=== PATIENT | female | born 1940 | race Caucasian/White ===

== ENCOUNTER → 2016-09-30 | Outpatient (CLI) | payer MEDICARE, OTHER ==
[~2016-09-30] MED LIST: ACETAMINOPHEN325 MG PO; ALBUTEROL17 GM; ALBUTEROL17 GM INH; ALLERGY RELIEF10 M6 PO; ARICEPT5 M1 PO; ARICEPT5 MG PO; BACLOFEN10 MG PO; BACTRIM DS TABL1 TAB PO; BENZONATATE PO; CIPRO PO; DISCONTINUED MED; ELIQUIS5 MG PO; FLUZONE HI180 MCG/03 IM; HYDROCODON-ACE1 EAC5 PO; HYDROCODONE-APA1 T42 PO; KEFLEX500 MG PO; LEVAQUIN PO; LISINOPRIL PO; LISINOPRIL-HCTZ1 T15; LISINOPRIL-HCTZ1 T15 PO; LODINE XL500 MG PO; LOPRESSOR PO; LORTAB 5/500 TA1 TA1 PO; MAGNESIUM400 MG PO; MAXALT MLT10 MG/TAB PO; MAXALT5 MG; METFORMIN HCL500 M1; METFORMIN HCL500 M1 PO; METOPROLOL TAR25 MG PO; MICRONASE5 M1 PO; MICRONASE5 M2 PO; NARATRIPTAN2.5 MG PO; NORCO 10/3251 TAB PO; NORVASC PO; NORVASC10 MG PO; OPANA; OPANA ER; PATIENT'S PHARMACY; PHENERGAN PO; PROAIR HFA8.5 GM IH; PROAIR HFA8.5 GM IN; TIZANIDINE HCL4 M1; TYLENOL #3 PO; VICODIN 5/500 T1 TAB PO; VITAMIN D1000 UNIT PO; ZANAFLEX4 M1 PO; ZESTORETIC 20-1 EAC1 PO; ZESTORETIC 20/11 TA1 PO; ZOFRAN PO; [UNRECOGNIZED DRUG - CODE] SQ
--- NOTE | ~2016-09-30 | EKG ---
PATIENT: PAO NICOLAS UNIT #: [id number] Ventricular Rate: 68 BPM Atrial Rate: 100 BPM QRS Duration: 76 ms Q-T Interval: 394 ms QTC Calculation(Bezet): 418 ms Calculated R [place]: -16 degrees Calculated T [place]: 7 degrees Diagnosis Line: Atrial fibrillation Diagnosis Line: Inferior infarct , age undetermined Diagnosis Line: Abnormal ECG Diagnosis Line: When compared with ECG of 12-MAR-2016 12:08, Diagnosis Line: Vent. rate has decreased BY 36 BPM Diagnosis Line: Inferior infarct is now Present Diagnosis Line: T wave amplitude has increased in Lateral leads Diagnosis Line: Confirmed by LASHAY SAEED MD ([id number]) on Diagnosis Line: 10/01/2016 1:16:39 PM INTERPRETING MD: MICHAELA
[2016-09-30 07:56] LABS: HEMATOCRIT 44.5 % (35.0-45.0); HEMOGLOBIN 14.2 gm/dL (12.0-16.0); MEAN CELL VOLUME 89.5 FL (83-96); MEAN CORPUSCULAR HEMOGLOBIN 28.6 PG (28-34); MEAN PLATELET VOLUME 8.5 FL (6.5-11.5); RED BLOOD COUNT 4.97 X10e (3.90-5.30); RED CELL DISTRIBUTION WIDTH 14.2 % (11.0-15.5); WHITE BLOOD COUNT 7.4 X10e3 (4.0-10.5)
[2016-09-30 08:11] LABS: PARTIAL THROMBOPLASTIN TIME 24.3 SECONDS (23.5-31.3); PROTHROMBIN TIME (PATIENT) 10.2 SECONDS (9.6-11.5)
[2016-09-30 08:18] LABS: CALCIUM SERUM 9.2 mg/dL (8.4-10.2); GLOM FILT RATE Estimated 53.9 mL/min (>60); POTASSIUM 4.3 mmol/L (3.5-5.1)
== END | disposition home or self-care (01) ==
LOC: CCVL 07:26
PROVIDERS: Internal Medicine Cardiovascular Disease
DX: I08.0 Rheumatic disorders of both mitral and aortic valves (principal); I48.91 Unspecified atrial fibrillation; I27.2 Other secondary pulmonary hypertension; I10 Essential (primary) hypertension; Z82.49 Family history of ischemic heart disease and other diseases of the circulatory system; R07.89 Other chest pain; J30.9 Allergic rhinitis, unspecified
CPT/HCPCS: 36415; 80048; 82810; 85027; 85610; 85730; 93005; C1769; C1887; C1894; J1644; J2250; J3010

== ENCOUNTER 2017-01-15 11:34 | Inpatient (IN) | payer MEDICARE, OTHER ==
[~2017-01-15] VITALS: Ht 157.5 cm; Wt 77.0 kg
--- NOTE | ~2017-01-15 | EKG ---
PATIENT: PAO NICOLAS UNIT #: [id number] Ventricular Rate: 60 BPM Atrial Rate: 288 BPM QRS Duration: 72 ms Q-T Interval: 428 ms QTC Calculation(Bezet): 428 ms Calculated R [place]: -15 degrees Calculated T [place]: 9 degrees Diagnosis Line: Atrial fibrillation Diagnosis Line: Low voltage QRS Diagnosis Line: Inferior infarct (cited on or before 30-SEP-2016) Diagnosis Line: Abnormal ECG Diagnosis Line: When compared with ECG of 30-SEP-2016 08:55, Diagnosis Line: No significant change was found Diagnosis Line: Confirmed by JOVANNA GARZA MD ([id number]) on 01/17/2017 Diagnosis Line: 10:59:23 PM INTERPRETING MD: GREG BERNARD
--- NOTE | ~2017-01-15 | DS ---
Unit #: [id number] #: [id number] Patient: PAO NICOLAS [id number] [address] [address] [id number] I MR#: [id number] NAME: PAO NICOLAS. ROOM: 562 Age: 76 Sex: F Admission Date: 01/15/2017 : 1940 Discharge Date: Attending Physician: Evangelista Klein M.D. Primary Care Physician: Tim Hargrove M.D. DISCHARGE SUMMARY DIAGNOSES ON ADMISSION 1. Weakness. 2. Acute kidney injury. 3. Sepsis. 4. Dehydration. DIAGNOSES ON DISCHARGE 1. Dehydration, resolved. 2. Acute kidney injury, resolved. 3. Probable acute urinary tract infection. 4. Sepsis. 5. Hypotension but resolved. 6. History of hypertension. 7. History of dementia. 8. Chronic atrial fibrillation. 9. Degenerative joint disease. 10. Migraine headache. 11. Chronic low-back pain with sciatica. 12. Yakyqukv-yt-gdbwpb mitral stenosis with ejection fraction of 50% to 60%. 13. Chronic atrial fibrillation. CONSULTATION Dr. Aguilar in cardiac consultation. DIAGNOSTIC STUDIES LABORATORY: Patient's creatinine is 1.1, sodium is 141, potassium 3.6. WBC 7.6, hemoglobin 12.3, platelet count 183,000. Urinalysis revealed 100-200 WBCs. Blood cultures did not reveal any growth so far. Urine culture was negative. TSH was 0.19. IMAGING: Chest x-ray revealed no acute cardiopulmonary findings. HOSPITAL COURSE A 76-year-old patient was admitted to [facility] with weakness and hypertension. Details are as per admission H and P. Acute urinary tract infection: Urine culture was negative, but patient's UA was positive and she was treated with antibiotics. She is afebrile. Acute kidney injury: Patient received IV fluids. The creatinine is normal now. Atypical chest pain: Patient was seen by cardiology in consultation who Unit #: [id number] #: [id number] Patient: PAO NICOLAS thought that patient had normal coronary arteries as per cardiac cath done recently. Hypotension: The patient's blood pressure was on low side which was attributed to the hypertension medications. There is also concern that patient may not be taking her medicines as directed as per the patient's daughter because of her dementia. Therefore, blood pressure medications were discontinued. The patient's blood pressure is 156/82 this morning. Therefore, we will have patient followup with primary care physician. Patient was seen by physical therapy who thought that patient is at her baseline and safe to go home. Today patient is comfortable, is not in any acute distress. PHYSICAL EXAMINATION VITAL SIGNS: Patient's vital signs reveal temperature of 98.4, pulse was 92 per minute, respiratory rate was 16 per minute, blood pressure was 150/64. HEENT: Revealed no conjunctival congestion. Sclerae nonicteric. NECK: Supple. Trachea central. RESPIRATORY: Revealed decreased breath sounds bilaterally. There are no wheezes or crackles. HEART: Irregularly irregular. S1, S2. ABDOMEN: Soft, nontender. Bowel sounds are present in all four quadrants. NEUROLOGIC: Patient is alert to person, place, and time. Power is 5/5 bilaterally. Sensations are grossly intact. SKIN: Warm and dry. RECOMMENDATIONS ON DISCHARGE Condition is stable. Activity is as tolerated. MEDICATIONS ON DISCHARGE 1. Albuterol MDI two puffs b.i.d. p.r.n. 2. Tylenol 650 mg q.6 hours p.r.n. 3. Eliquis 2.5 mg p.o. b.i.d. 4. Metoprolol 12.5 mg p.o. b.i.d. 5. Aricept 5 mg p.o. daily. 6. Hydrocodone 10 mg q.8 hours p.r.n. 7. Baclofen 10 mg p.o. t.i.d. p.r.n. 8. Keflex 500 mg p.o. b.i.d. for four days for acute urinary tract infection. FOLLOWUP Patient is advised to follow up with primary care physician in one week and have a CBC and BMP done. I called and spoke with patient's daughter, Zoë, and she showed complete understanding to plan on discharge. She will ensure that patient is taking her medications properly and followup with her primary care physician. Dictated by... Adrian Ochoa/jessica Unit #: [id number] #: [id number] Patient: PAO NICOLAS Octaviano TD: 01/18/2017 11:35 JOB #: [id number] CC: Tim Hargrove M.D. DISCHARGE SUMMARY Page 1 of 1 X Evangelista Klein MD DISCHARGE SUMMARY
--- NOTE | ~2017-01-15 | EKG ---
PATIENT: PAO NICOLAS UNIT #: [id number] Ventricular Rate: 85 BPM Atrial Rate: 113 BPM QRS Duration: 74 ms Q-T Interval: 354 ms QTC Calculation(Bezet): 421 ms Calculated R [place]: -12 degrees Calculated T [place]: 38 degrees Diagnosis Line: Atrial fibrillation Diagnosis Line: Low voltage QRS Diagnosis Line: Abnormal ECG Diagnosis Line: Diagnosis Line: Confirmed by SAURABH SANCHEZ MD ([id number]) on 01/20/2017 Diagnosis Line: 7:45:28 AM INTERPRETING MD: LAURA BERNARD
--- NOTE | ~2017-01-15 | CR72 ---
[facility] A Service of [facility] RADIOLOGY TEXT RESULTS PATIENT: PAO NICOLAS LOCATION: [facility] 56 : 38 UNIT #: [id number] AGE: [address]: Yousuf La MD SEX: F ORDER DR: [id number] [facility] [address] [facility] [place], [place] [address] [id number] E MR#: [id number] Acc #: [id number] NAME: PAO NICOLAS : 1940 SEX: F STUDY DATE/TIME: 01/15/2017 12:25 UNIT: [facility] ROOM: STUDY DESCRIPTION: CR Chest Single View Portable Attending Physician: Teodoro Loyd D.O. Ordering Physician: Teodoro Loyd D.O. Primary Care Physician: Tim Hargrove M.D. MEDICAL IMAGING REPORT This report is preliminary unless electronic signature is present EXAM Chest portable 01/15/2017 1225 hours HISTORY 76-year-old woman with 1-week history of shortness of air, weakness and vomiting blood. History of hypertension and heart murmur. COMPARISON 03/11/2016 FINDINGS Portable upright chest demonstrates heart size at the upper limits of normal with calcification of the mitral annulus, unchanged. Aortic contours are normal. There are calcified mediastinal and hilar nodes, unchanged. Lungs are hyperinflated with no acute pulmonary density. Previous interstitial changes seen on prior study have resolved. IMPRESSION Pulmonary hyperinflation with benign calcified granulomatous changes. There are no acute cardiopulmonary findings. Dictated by... Carleen Candelaria M.D. THIS IS AN ELECTRONICALLY VERIFIED REPORT Carleen Candelaria M.D. at 01/16/2017 5:21 PM JOZEF/keke TD: 01/15/2017 15:40 JOB #: [id number] MEDICAL IMAGING REPORT [facility] A Service [facility] RADIOLOGY TEXT RESULTS PATIENT: PAO NICOLAS LOCATION: [place] [address] : 38 UNIT #: [id number] AGE: [address]: Yousuf La MD SEX: F ORDER DR: Page 1 of 1 COPY
--- NOTE | ~2017-01-15 | HP ---
Unit #: [id number] #: [id number] Patient: PAO NICOLAS [id number] [address] [address] [id number] E MR#: [id number] NAME: PAO NICOLAS ROOM: Age: 76 Sex: F Admission Date: 01/15/2017 : 1940 Attending Physician: Teodoro Loyd D.O. Primary Care Physician: Tim Hargrove M.D. HISTORY AND PHYSICAL CHIEF COMPLAINT Chief complaint is weakness. HISTORY OF PRESENT ILLNESS The patient is a 76-year-old female with a history of hypertension, diabetes and atrial fibrillation on anticoagulation, brought to the emergency room complaining of the feeling weakness, vomiting. The patient has been feeling sick for the last one week. The patient was seen by the PCP on Wednesday and diagnosed with a UTI. The patient was discharged home on amoxicillin for the UTI. However, the patient continues feeling sick with no appetite and continues to have vomiting. The patient has three vomiting episodes since this morning. The patient denies any fever, denies any fall, denies any chest pain. The patient is being admitted for the above reasons. PAST MEDICAL HISTORY History of diabetes, hypertension, atrial fibrillation, osteoarthritis, migraine and sciatica. PAST SURGICAL HISTORY Right knee replacement, a left knee replacement and cataracts bilaterally. SOCIAL HISTORY Denies tobacco, alcohol or any illicit drug abuse. She is , has one child and walks with a walker. FAMILY HISTORY Family history is positive for Parkinson disease. ALLERGIES No known drug allergies. HOME MEDICATIONS Patient is on levofloxacin, Zofran, [place], Aricept and lisinopril, hydrochlorothiazide, baclofen, Lopressor, Eliquis, Ventolin. REVIEW OF SYMPTOMS Positive for weakness, positive for nausea and vomiting, positive for dehydration and negative for chest pain, negative for shortness of breath and all other systems have been reviewed and negative as otherwise mentioned in the HPI. PHYSICAL EXAMINATION Unit #: [id number] #: [id number] Patient: PAO NICOLAS GENERAL APPEARANCE: On examination the patient is lying on a bed not in acute distress. VITAL SIGNS: Temperature 97.5, pulse 65, respiratory rate 16, blood pressure is 92/56, sating 98% at room air. HEAD: Atraumatic/normocephalic. HEENT: Pupils equal, round and reacting to light and accommodation. Extraocular movements are intact. NECK: Supple. LUNGS: Decreased air entry at the bases. HEART: Regular rate and rhythm. ABDOMEN: Soft and positive bowel sounds. EXTREMITIES: No cyanosis. No clubbing and no edema. NEURO: No gross focal motor deficit. DIAGNOSTIC STUDIES LAB DATA: WBCs 11.8, hemoglobin 14.9, hematocrit 46.4 and platelet is 263, INR is 1.2, sodium is 140, potassium 4.8, chloride 104, bicarb 23, glucose 94, BUN 39, creatinine 2.9, calcium 9.5, AST 38, ALT 22, alkaline phosphatase 93, troponin less than 0.05, lactic acid is 2.1. IMAGING: And chest x-ray shows pulmonary hyperinflation with noncalcified granulomatous changes. There are no acute cardiopulmonary findings. ASSESSMENT AND PLAN 1. Acute kidney injury. 2. History of a urinary tract infection. 3. Sepsis. 4. Dehydration. Plan to admit the patient to the inpatient with the telemetry. Continue with IV fluids per sepsis protocol and hold the blood pressure medications with the lisinopril and hydrochlorothiazide and will start on IV antibiotics with Rocephin and follow up with the UA with the cultures and patient will have an OT/PT evaluation and further recommendations will follow as more lab results are available. Dictated by Adrian Prasad/su TD: 01/15/2017 17:54 JOB #: [id number] HISTORY AND PHYSICAL Page 1 of 1 X MT MENJIVAR MD HISTORY AND PHYSICAL
--- NOTE | ~2017-01-15 | CO ---
Unit #: [id number] #: [id number] Patient: PAO NICOLAS [id number] [address] [place], [place] [address] [id number] I MR#: [id number] NAME: PAO NICOLAS ROOM: 562 Age: 76 Sex: F Admission Date: 01/15/2017 : 1940 Attending Physician: Yousuf La M.D. Primary Care Physician: Tim Hargrove M.D. Consultation Date: 01/16/2017 CONSULTATION REPORT This patient is a patient of Dr. Nuñez. REASON FOR CONSULTATION Atrial fibrillation with slow ventricular response. HISTORY OF PRESENT ILLNESS This is a 76-year-old white female, who has a history of hypertension, diabetes mellitus. She has permanent atrial fibrillation that was diagnosed last year and has been on metoprolol and Eliquis, chronic back pain, asthma versus COPD, EF of 55% to 60% with moderate mitral stenosis, normal coronaries on her last catheterization. This past 09/2016, has some mild dementia who came to the emergency room with weakness, nausea, abdominal discomfort. According to the patient, she had been to her family doctor earlier in the week and was put on antibiotics for urinary tract infection. She says she is progressively becoming weaker and had a low-grade fever. She said that she has been eating well and her nausea intensified and she had a couple episodes of vomiting. She denies any fall; however, she has a bruise on her right upper deltoid area of right upper extremity. She denies any chest pain; pain in her neck, bilateral jaws, shoulders, arms, or elbow. She denies any palpitations. She has complained of some dizziness. In the emergency room, the patient's blood pressure was 92/56, heart rate was 65, respirations 16, temperature 97.5, O2 saturation 98% on room air. Her EKG shows atrial fibrillation with ventricular rate around 60. Her initial cardiac enzymes are negative. The patient's BUN is 39 with creatinine 2.9. Looking back on her previous admissions, her creatinine has never been that high. Potassium is 4.8. The patient's lactic acid is 2.1 and later 2.6. WBCs are 11.8, her hemoglobin hematocrit are stable. The patient's urinalysis shows 2+ leukocyte esterase, 0.2 urobilinogen, 100 to 200 wbc's, and 1+ bacteria. The patient's urine and blood cultures are pending. The patient's chest x-ray shows nothing acute. The patient was started on sepsis protocol. Started on normal saline, received a bolus during the night. Her telemetry showed a 2.1 second pause. She remains in atrial fibrillation. She states she did take a dose of her metoprolol yesterday morning, but has not had any since that has been held. Cardiology consult to assist with evaluation and management. PAST MEDICAL HISTORY 1. Hypertension. 2. Diabetes mellitus, type 2. 3. Osteoarthritis and sciatica, ambulates with a walker. Unit #: [id number] #: [id number] Patient: PAO NICOLAS 4. History of chronic back pain and history of narcotic dependence. 5. Permanent atrial fibrillation diagnosed in 03/2016, on metoprolol and Eliquis. 6. History of migraines. 7. Questionable obstructive sleep apnea, questionable asthma versus COPD secondary to secondhand smoking. 8. In 03/2016, Lexiscan Cardiolite stress test, EF of 65%. No ischemia. No infarction. 9. In 09/2016, right and left heart catheterization showed normal coronaries with the EF of 60%. Jaszvyjv-ex-afwjgj mitral stenosis, mild pulmonary artery hypertension with mitral valve area of 1.65 cm, mitral valve index 0.87. 10. In 03/2016, 2D echo, LVEF of 55% to 60% with biatrial enlargement. Mitral valve leaflets are calcified. 11. Nonsmoker. 12. Mild dementia. PAST SURGICAL HISTORY 1. Right knee replacement. 2. Left knee replacement. 3. Bilateral cataract surgery. HOME MEDICATIONS Naratriptan 2.5 mg p.o. daily p.r.n. for migraine headaches, Levaquin 500 mg p.o. daily recently started for UTI, Zofran 4 mg p.o. every 6 hours p.r.n., hydrocodone/acetaminophen 10/325 one tablet p.o. every 8 hours p.r.n., Aricept 5 mg p.o. daily, Zestoretic 20/12.5 one tablet p.o. daily, baclofen 10 mg one tablet t.i.d. p.r.n., metoprolol 25 mg p.o. b.i.d., Eliquis 5 mg p.o. b.i.d., Ventolin one puff inhalation b.i.d. p.r.n. ALLERGIES No known drug allergies. SOCIAL HISTORY The patient lives with her granddaughter. She ambulates with a walker. She says she has never smoked, but has been exposed to smokers. No alcohol or illicit drug abuse. FAMILY HISTORY No known coronary artery disease. REVIEW OF SYSTEMS See details in HPI. PHYSICAL EXAMINATION GENERAL: Ms. Hollis is a 76-year-old white female, in no acute respiratory distress. She is awake, alert, answers most questions appropriately. VITAL SIGNS: Currently blood pressure is 107/62, heart rate is 76, respirations 18, temperature is 98, O2 saturations 97% on 2 L. NECK: Trachea midline. No thyromegaly or lymphadenopathy. Normal carotid upstrokes. No jugular venous distention. HEART: S1, S2. Regular rate and rhythm. Systolic murmur over the left sternal border. LUNGS: Diminished, otherwise clear. ABDOMEN: Soft and nontender. EXTREMITIES: Pedal pulses are palpable with trace of pedal edema. Unit #: [id number] #: [id number] Patient: PAO NICOLAS DIAGNOSTIC STUDIES LABORATORY RESULTS: Glucose is 90, BUN 13, creatinine 1.8. Yesterday, her BUN was 39 and creatinine 2.9. EGFR is 26.5. Sodium 141, potassium 4.5, chloride 112, CO2 of 23, calcium is 8.4. Total protein 7.4, albumin 4.0, bilirubin total 0.9. AST 38, ALT 22, alkaline phosphatase is 93. Lactic acid is 2.1 and later 2.6. WBCs 8.2, hemoglobin 12.5, hematocrit 37.7, and platelets is 190. Initial cardiac enzymes; CK-MB is 11.3, troponin less than 0.05. INR is 1.2. Urinalysis shows 2+ leukocyte esterase, trace of protein, 0.2 urobilinogen, 100 to 200 wbc's, and 1+ bacteria. Urine and blood cultures pending. IMAGING STUDIES: Chest x-ray shows pulmonary hyperinflation with benign calcified granulomatous changes. There is nothing acute. CARDIOVASCULAR STUDIES: EKG shows atrial fibrillation with a ventricular rate of 60 beats per minute. Low voltage. Inferior infarct age undetermined. Poor R-wave progression. Telemetry showed a 2.15 second pause nothing any longer. IMPRESSION 1. Weakness, nausea, abdominal pain. 2. Questionable sepsis. 3. Acute kidney injury. 4. Questionable sepsis, hypotension, along with increased lactic acid. 5. Acute kidney injury. 6. Moderate to severe mitral stenosis with EF of 55% to 60%. 7. Permanent atrial fibrillation with slow ventricular response. 8. Questionable urinary tract infection. 9. History of normal coronaries on cardiac cath in 09/2016. 10. History of hypertension. 11. Diabetes mellitus, type 2. 12. Osteoarthritis, sciatica, and chronic back pain. 13. History of migraines. 14. Mild dementia. 15. Nonsmoker. PLAN 1. Cardiology consult to assist with evaluation and management. The patient had the longest pause of 2.15 seconds. Holding all her blood pressure medications that include her beta-deny. She did have a dose yesterday morning. 2. With the patient's change in her renal status, we have to decrease down the dose of Eliquis for a renal dosing from 5 mg b.i.d. to 2.5 mg b.i.d. 3. On exam, there are no signs or symptoms of unstable angina. We will continue to monitor the patient off her beta-deny. If she has no significant pauses greater than 3 seconds, may need to keep her off the beta-deny and/or have an outpatient event monitor placed. 4. The patient is on IV fluids for acute kidney injury. Also holding all of her medications affects her blood pressure including her Zestoretic and her Lopressor. 5. Urine and blood cultures are pending. She is on the sepsis protocol. 6. Further recommendations pending per Dr. Aguilar. Dictated by... Sayda Batista A.P.R.N. Unit #: [id number] #: [id number] Patient: PAO NICOLAS ADIA/bakari TD: 01/16/2017 19:12 JOB #: [id number] CC: Jonatan Nuñez M.D. CONSULTATION REPORT Page 1 of 1 X Sayda Batista APRN CONSULTATION REPORT
[~2017-01-15 11:34] MED LIST changes: -ACETAMINOPHEN325 MG PO; -ALBUTEROL17 GM INH; -HYDROCODON-ACE1 EAC5 PO; -KEFLEX500 MG PO; -LEVAQUIN PO; -MAGNESIUM400 MG PO; -PATIENT'S PHARMACY; -ZESTORETIC 20-1 EAC1 PO; -ZOFRAN PO
[2017-01-15 12:44] LABS: BASOPHIL% 0.2 % (0-2.5); EOSINOPHIL% 0.2 % (0.0-7.0); HEMATOCRIT 46.4 % (35.0-45.0); HEMOGLOBIN 14.9 gm/dL (12.0-16.0); LYMPHOCYTE# 1.6 X10e3 (1.0-3.5); LYMPHOCYTE% 13.7 % (17.0-45.0); MEAN CELL VOLUME 90.6 FL (83-96); MEAN CORPUSCULAR HEMOGLOBIN 29.1 PG (28-34); MEAN CORPUSCULAR HGB CONC 32.1 g/dL (30-36); MEAN PLATELET VOLUME 8.4 FL (6.5-11.5); MONOCYTE# 0.8 X10e3 (0-1.0); MONOCYTE% 6.7 % (3.0-12.0); NEUTROPHIL# 9.4 X10e3 (1.5-7.1); NEUTROPHIL% 79.2 % (40-75); PLATELET COUNT 263 X10e3 (140-420); RED BLOOD COUNT 5.12 X10e (3.90-5.30); RED CELL DISTRIBUTION WIDTH 13.8 % (11.0-15.5); WHITE BLOOD COUNT 11.8 X10e3 (4.0-10.5)
[2017-01-15 12:45] LABS: DIFF IND NO
[2017-01-15] MEDS ORDERED: ARICEPT5 M1 PO (12:53)
[2017-01-15] MEDS ORDERED: HYDROCODON-ACE1 EAC5 PO (12:53)
[2017-01-15] MEDS ORDERED: BACLOFEN10 MG PO (12:53)
[2017-01-15] MEDS ORDERED: LOPRESSOR PO (12:53)
[2017-01-15] MEDS ORDERED: ZESTORETIC 20-1 EAC1 PO (12:53)
[2017-01-15] MEDS ORDERED: LEVAQUIN PO (12:53)
[2017-01-15] MEDS ORDERED: ZOFRAN PO (12:53)
[2017-01-15] MEDS ORDERED: ELIQUIS5 MG PO (12:54)
[2017-01-15] MEDS ORDERED: ALBUTEROL17 GM INH (12:54)
[2017-01-15] MEDS ORDERED: PATIENT'S PHARMACY (12:54)
[2017-01-15 12:58] LABS: INR 1.2; PARTIAL THROMBOPLASTIN TIME 26.6 SECONDS (23.5-31.3); PROTHROMBIN TIME (PATIENT) 12.9 SECONDS (10.0-11.7)
[2017-01-15 13:10] LABS: BILIRUBIN,TOTAL 0.9 mg/dL (0.2-2.0); BUN/CREATININE RATIO 13.44; CALCIUM SERUM 9.5 mg/dL (8.4-10.2); CREATININE SERUM 2.9 mg/dL (0.6-1.4); GLOM FILT RATE Estimated 14.9 mL/min (>60); POTASSIUM 4.8 mmol/L (3.5-5.1); PROTEIN TOTAL SERUM 7.4 g/dL (6.0-8.3)
[2017-01-15 13:33] LABS: POC - CKMB 11.3 ng/mL (0.0-7.9); POC - TROPONIN <0.05 ng/mL (<=0.05)
[2017-01-15 16:03] LABS: URINE SOURCE CLEAN CATCH
[2017-01-15 16:13] LABS: URINE APPEARANCE CLOUDY; URINE BILIRUBIN NEG (NEG); URINE BLOOD NEG (NEG); URINE COLOR YELLOW; URINE GLUCOSE NEG (NEG); URINE KETONE NEG (NEG); URINE LEUKOCYTE ESTERASE 2+ (NEG); URINE NITRATE NEG (NEG); URINE PROTEIN TRACE (NEG); URINE SPECIFIC GRAVITY 1.024 (1.003-1.035); URINE UROBILINOGEN 0.2 MG/DL (NEG)
[2017-01-15 16:15] LABS: CULTURE INDICATED? YES; URINE BACTERIA AUWI 1+ (NEGATIVE); URINE SQUAMOUS EPITHELIAL CELL MOD /[HPF]; UWBCS1 AUWI 100-200 (0-5)
[2017-01-15 16:32] LABS: U HYALINE CASTS AUWI 0-2 /[LPF]
[2017-01-15 16:33] LABS: URINE CRYSTALS CALCIUM OXALATE /[HPF]
[2017-01-16 05:21] LABS: BASOPHIL% 0.1 % (0-2.5); EOSINOPHIL# 0.1 X10e3 (0-0.7); HEMATOCRIT 37.7 % (35.0-45.0); LYMPHOCYTE# 2.6 X10e3 (1.0-3.5); LYMPHOCYTE% 32.1 % (17.0-45.0); MEAN CELL VOLUME 89.8 FL (83-96); MEAN CORPUSCULAR HEMOGLOBIN 29.7 PG (28-34); MEAN CORPUSCULAR HGB CONC 33.1 g/dL (30-36); MEAN PLATELET VOLUME 8.1 FL (6.5-11.5); MONOCYTE# 0.6 X10e3 (0-1.0); MONOCYTE% 7.8 % (3.0-12.0); NEUTROPHIL# 4.9 X10e3 (1.5-7.1); PLATELET COUNT 190 X10e3 (140-420); WHITE BLOOD COUNT 8.2 X10e3 (4.0-10.5)
[2017-01-16 05:25] LABS: HEMOGLOBIN 12.5 gm/dL (12.0-16.0)
[2017-01-16 05:26] LABS: DIFF IND NO
[2017-01-16 05:33] LABS: BUN/CREATININE RATIO 16.66; CALCIUM SERUM 8.4 mg/dL (8.4-10.2); CREATININE SERUM 1.8 mg/dL (0.6-1.4); GLOM FILT RATE Estimated 26.5 mL/min (>60); POTASSIUM 4.5 mmol/L (3.5-5.1)
[2017-01-17 05:23] LABS: HEMATOCRIT 38.8 % (35.0-45.0); HEMOGLOBIN 12.9 gm/dL (12.0-16.0); MEAN CELL VOLUME 89.8 FL (83-96); MEAN CORPUSCULAR HEMOGLOBIN 29.8 PG (28-34); MEAN CORPUSCULAR HGB CONC 33.2 g/dL (30-36); MEAN PLATELET VOLUME 8.6 FL (6.5-11.5); RED BLOOD COUNT 4.32 X10e (3.90-5.30); RED CELL DISTRIBUTION WIDTH 14.3 % (11.0-15.5); WHITE BLOOD COUNT 7.6 X10e3 (4.0-10.5)
[2017-01-17 06:27] LABS: BUN/CREATININE RATIO 13.07; CALCIUM SERUM 8.5 mg/dL (8.4-10.2); CREATININE SERUM 1.3 mg/dL (0.6-1.4); GLOM FILT RATE Estimated 39.3 mL/min (>60); POTASSIUM 3.8 mmol/L (3.5-5.1)
[2017-01-18 06:39] LABS: HEMATOCRIT 37.4 % (35.0-45.0); HEMOGLOBIN 12.3 gm/dL (12.0-16.0); MEAN CELL VOLUME 89.6 FL (83-96); MEAN CORPUSCULAR HEMOGLOBIN 29.5 PG (28-34); MEAN CORPUSCULAR HGB CONC 32.9 g/dL (30-36); MEAN PLATELET VOLUME 8.7 FL (6.5-11.5); RED BLOOD COUNT 4.18 X10e (3.90-5.30); RED CELL DISTRIBUTION WIDTH 13.8 % (11.0-15.5); WHITE BLOOD COUNT 7.6 X10e3 (4.0-10.5)
[2017-01-18 07:15] LABS: BUN/CREATININE RATIO 8.18; CALCIUM SERUM 8.6 mg/dL (8.4-10.2); CREATININE SERUM 1.1 mg/dL (0.6-1.4); GLOM FILT RATE Estimated 48.1 mL/min (>60); POTASSIUM 3.6 mmol/L (3.5-5.1)
[2017-01-18] MEDS ORDERED: ACETAMINOPHEN325 MG PO (13:53)
[2017-01-18] MEDS ORDERED: MAGNESIUM400 MG PO (13:55)
[2017-01-18] MEDS ORDERED: KEFLEX500 MG PO (13:56)
== END 2017-01-18 16:20 | disposition home health service (06) | DRG 872 ==
LOC: CED 11:34 → C5B 15:56 → CED 20:13 → C5B 20:13
PROVIDERS: Emergency Medicine; Internal Medicine
DX: A41.9 Sepsis, unspecified organism (principal); N17.9 Acute kidney failure, unspecified; I48.2 Chronic atrial fibrillation; I49.5 Sick sinus syndrome; E86.0 Dehydration; N39.0 Urinary tract infection, site not specified; F03.90 Unspecified dementia, unspecified severity, without behavioral disturbance, psychotic disturbance, mood disturbance, and anxiety; E11.9 Type 2 diabetes mellitus without complications; I10 Essential (primary) hypertension; G89.29 Other chronic pain; I05.0 Rheumatic mitral stenosis; Z79.01 Long term (current) use of anticoagulants; M54.9 Dorsalgia, unspecified; R07.89 Other chest pain; Z96.653 Presence of artificial knee joint, bilateral
CPT/HCPCS: 36415; 71010; 80048; 80053; 81003; 82553; 82947; 83605; 83735; 84443; 84484; 85025; 85027; 85610; 85730; 86850; 86900; 86901; 87040; 87086; 93005; 94640; 94760; 96361; 96374; 97161; 99285; G8978-GP; G8979-GP; G8980-GP; J0696; J2405; J3475